=== PATIENT | male | born 1935 | race Caucasian/White ===

== ENCOUNTER 2016-12-02 12:06 | Inpatient (IN) | payer MEDICARE ==
--- NOTE | ~2016-12-02 | HP ---
History And Physical [place] [id number] [facility] [place]. [address] NAME: EDVIN CASTRO : 33 STATUS : ADM IN PAT#: [id number] AGE: 81 ADM/REG DATE : 12/02/16 MR#: [id number] REPORT SERV DATE: 12/02/16 DICTATED BY: JAY ALAN DATE: 12/02/16 REPORT STATUS : Draft TRANSCRIBED BY: MODL DATE: 12/02/16 DATE OF ADMISSION: 12/02/2016 IDENTIFYING DATA: 81-year-old white male whose PCP is Dr. Nora Jeronimo; tack cutter, Dr. Nunez; GI, Dr. Morataya. CHIEF COMPLAINT: Shortness of breath. HISTORY OF PRESENT ILLNESS: This history of present illness is obtained by talking with the patient and his as well as with the ER physician, Dr. Arthur and reviewing [facility] and [facility]. The patient states he was in his usual state of health until he awoke this morning. When he got out of bed, he had a little bit of a cough with a small amount of sputum. He does not recall what color it was. He states he got very short of breath. He had no fever, no throat pain. He had a routine appointment with Dr. Nunez at the office, went there to see them. They noticed his shortness of breath and transported him by ambulance to the ER. In the ER, they did a CT scan of his neck because he had stridor and it revealed nearly total occlusion at the level of the false cords suggesting a mass. The patient was given racemic epinephrine and Decadron and felt significantly better. ER physician, Dr. Arthur told me that she spoke directly with the on-call Ear, Nose, and Throat, Dr. Sulaiman Schwartz and that he suspected it was probably a mucous plug and that he would see the patient in consultation. Because of the Ear, Nose, and Throat was not at the ER directly at that time, I did ask for a repeat CT of the soft tissues of the neck and reviewed it with the same radiologist that had seen the first images, that is Dr. Santiago Mckeon. The review of the second CT according to Dr. Mckeon reveals the same appearance with almost nearly occluded airway at the level of the false cords. The images went far enough in the chest and revealed no lymphadenopathy in the neck or chest, nothing that would be in the way of the recurrent laryngeal. 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 The patient and his state he feels much better at this point in time. He has never had anything like this before. He does not wear home oxygen. He took his flu shot in the fall of last year. REVIEW OF SYSTEMS: He has chronic nocturnal leg cramps. He has 4-5 times per night nocturia. He has occasional ankle edema. He has chronic daily headaches for about 5-6 months and was told he has cervical spine degenerative disk disease and is contemplating potential surgery. He also has some chronic dizziness. He denies fever, abdominal pain, nausea, vomiting, diarrhea, rectal bleeding, or melena. He has a slight dysuria. He has no hesitancy, rash, tick bites, or anorexia. No weight changes or falls. ALLERGIES: HE CLAIMS ALLERGIES TO ERYTHROMYCIN, VIROPTIC, BETADINE, AND LATEX. PAST MEDICAL HISTORY: He denies any history of asthma, COPD, seizures, biliary tract History And Physical [address] [address] NAME: EDVIN CASTRO : 33 STATUS : ADM IN [facility]#: [id number] AGE: 81 ADM/REG DATE : 12/02/16 MR#: [id number] REPORT SERV DATE: 12/02/16 DICTATED BY: JAY ALAN DATE: 12/02/16 REPORT STATUS : Draft TRANSCRIBED BY: MODL DATE: 12/02/16 disease, liver disease, chronic kidney disease, kidney stones, or cancer. He has known coronary artery disease with bypass in 2009. He also has a sick sinus syndrome with a dual lead pacer in place. He has had paroxysmal atrial fibrillation in the past. He has a history of hypertension. He has peripheral arterial disease with history of an abdominal aortic aneurysm. The most recent image of which I saw was on 10/19/2014 and it was 4.4 cm at that time. He has a history of diabetes for about 14 years. He has had previous gastric ulcer and GI bleed, so he is only on aspirin and Plavix instead of other anticoagulants for his history of paroxysmal atrial fibrillation. He has a history of osteoarthritis, hypothyroidism. 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 He has obstructive sleep apnea, but he is not comfortable, so does not wear his CPAP. HOME MEDICATIONS: Amiodarone 200 mg every morning, aspirin 81 mg daily, Lipitor 40 mg at bedtime, baclofen 10 mg at bedtime p.r.n., vitamin C with bioflavonoids 1000 mg twice a day, Caltrate with vitamin D 600 mg twice a day, vitamin D 1000 units twice a day, Plavix 75 mg daily, vitamin B12 1000 mcg daily, Colace 100 mg daily p.r.n., Lasix 80 mg in the morning and 40 mg in the evening, Lopid 600 mg b.i.d., zhsy-pbh-izatsit Move Free joint health tablet, Lantus 30 units twice a day, Prevacid 30 mg twice a day, Synthroid 50 mcg daily, Cozaar 50 mg twice a day, Toprol-XL 12.5 mg daily, fish oil 1200 mg twice a day, Endocet 10/325 q.6 hours p.r.n. pain, MiraLAX powder one packet daily, KCl 20 mEq twice a day, vitamin E 400 units at bedtime. PAST SURGICAL HISTORY: He has had coronary bypass, right total knee. He has had right total hip. He has had bilateral shoulders. He had his right eye enucleated. He has had bilateral carpal tunnel release. SOCIAL HISTORY: He quit smoking in 1988, it was a pack per day. Has no significant alcohol intake history. He is . He used to work in the [employer]. He walks without any assistive device. FAMILY HISTORY: Mother was an alcoholic. Dad with heart disease. Siblings with heart disease. DIAGNOSTIC DATA: EKG done today at 11:25 reveals a lot of baseline motion artifact, but appears like he has underlying first-degree AV block and some nonspecific ST and T-wave abnormalities per my interpretation. Chest x-ray done as a single portable film today reveals bilateral shoulder changes, evidence of previous sternotomy, shallow inspiratory size with grossly clear lung fernandes per my interpretation. CT scan of the chest is described as resulted above. Arterial blood gas done in the emergency room pH 7.53, pCO2 is 27, PO2 is 107, bicarbonate 22.5 and it is not clear how much oxygen he was on. White count is 9.1, hemoglobin 13.8, platelets are 231,000. Pro-time is 13.5, INR 1.0, PTT is 26.0. His sodium is 142, potassium 3.9, chloride 105, CO2 is 28, BUN 23, creatinine 1.92 and by comparison, it was 1.59 on 11/11/2016. Glucose 122, calcium 9.8. The rest of the CMP is normal. Troponin less than 0.02. His B-natriuretic peptide is 70.3. Procalcitonin today History And Physical [address] [address] NAME: EDVIN CASTRO : 33 STATUS : ADM IN [facility]#: [id number] AGE: 81 ADM/REG DATE : 12/02/16 MR#: [id number] REPORT SERV DATE: 12/02/16 DICTATED BY: JAY ALAN DATE: 12/02/16 REPORT STATUS : Draft TRANSCRIBED BY: MODBartolome DATE: 12/02/16 is less than 0.05. PHYSICAL EXAMINATION: VITAL SIGNS: Temp is 98, pulse 70, respirations 22, blood pressure 130/70, O2 saturation is 100%, currently on 4 L. GENERAL: A well-developed, older male, who appears in no acute distress on the ER [facility] with the head of the bed elevated about 45 degrees. HEENT: Head is atraumatic. Pupils: The right eye is gone and his eyelids were sewn shut. Left pupil is reactive. Extraocular motions are intact. No scleral icterus noted. Ear canals and TMs unremarkable. He has moderately diminished hearing. No inflammatory changes noted of the ears externally. Nose, noninflamed externally. Septum midline. Nares patent. Mouth, moist. Good gag. No redness of the throat, gums, or lips. NECK: Supple. No lymph node or thyroid enlargement. The carotids have good pulses. No bruits. He does have a very mild stridor intermittently. LUNGS: Clear. Good air flow. No wheezes nor rhonchi anterior and posterior. Normal respiratory effort at this time. HEART: Regular without gallop, click, murmur, or rub. ABDOMEN: Bowel sounds positive. Obese, soft, nondistended, nontender. No masses. No organomegaly. EXTREMITIES: Warm. Good pulses. No clubbing, no cyanosis, no edema. No actively inflamed skin or joints. ASSESSMENT: 1. Acute stridor with a significantly narrowed airway that did not clear after racemic epinephrine and steroids, though it symptomatically was improved. If this is a mucous plug that would be the best of all scenarios. I am more concerned that it might be a soft tissue mass or recurrent laryngeal nerve palsy bilaterally. 2. Acute kidney injury superimposed on stage 3 chronic kidney disease. 3. Acute respiratory alkalosis. 4. See past medical history. PLAN: Admit to the intensive care and I spoke with Critical Care, Dr. Hossein Portillo about it right now, and I called and left message for the Ear, Nose, and Throat myself. We will give him nebulizer treatments with racemic epinephrine p.r.n. We will go with steroids Decadron. We will humidify oxygen. We will hold his Lasix and losartan for now given his acute kidney injury. We will follow up his renal function. and patient updated at the bedside at this time. NARCISO/MODL Jay Alan M.D. / [id number] History And Physical [address] [address] NAME: EDVIN CASTRO : 33 STATUS : ADM IN [facility]#: [id number] AGE: 81 ADM/REG DATE : 12/02/16 MR#: [id number] REPORT SERV DATE: 12/02/16 DICTATED BY: JAY ALAN DATE: 12/02/16 REPORT STATUS : Draft TRANSCRIBED BY: MODBartolome DATE: 12/02/16 CC: MD Nora Oswald M.D. Alexander Stratienko, M.D. Richard Sadowitz, M.D.
--- NOTE | ~2016-12-02 | CN ---
Consultation Report [facility] [address] [place]. [address] NAME: EDVIN CASTRO : 33 STATUS : ADM IN PAT#: [id number] AGE: 81 ADM/REG DATE : 12/02/16 MR#: [id number] REPORT SERV DATE: 12/04/16 DICTATED BY: LENNIE NUNEZ DATE: 12/04/16 REPORT STATUS : Draft TRANSCRIBED BY: MODBartolome DATE: 12/04/16 CONSULTATION DATE OF CONSULTATION: 12/04/2016 REASON FOR CONSULTATION: Evaluation and treatment of reported Wenckebach. HISTORY OF PRESENT ILLNESS: 81-year-old man, followed by Dr. Jeronimo, known to me from care, has history of coronary artery disease with 2009 three-vessel CABG, and with unexplained decrement in LVEF by surveillance echocardiogram on 11/16 catheterization at [facility] demonstrating normal LV systolic function, and patent vein graft to right posterior artery, and patent SILVA graft to LAD, patent vein graft to first diagonal vessel, PAF status post maze procedure on 04/11 and [id number] score of at least 4, but not anticoagulated due to hemorrhagic risk, type 2 diabetes, treated hypertension, asymptomatic carotid disease, abdominal aortic aneurysm, chronic kidney disease, and history of GI bleeding. The patient was seen in the office on 12/02/2016 for routine blood work and was observed to have respiratory distress. He had stridor and some wheeze, and was breathing over 40 times a minute. He had minimal improvement with aerosolized bronchodilators. He did not complain of chest pain, and there was no evidence of pulmonary congestion. EMS was summoned, and he was brought to the emergency room at [facility]. In the emergency room, he has a CT of the chest which demonstrated near total occlusion of the airway at the level of the false vocal cords. ENT evaluation was requested, but was deferred to outpatient status with suspicion of mucous plug. Repeat CTA demonstrated persistence of near total occlusion of the upper airway. The patient has remained stable from a respiratory perspective while in hospital after treatment with racemic epinephrine. He has been observed to have Wenckebach here, but no atrial fibrillation. He denies chest pain. PAST MEDICAL HISTORY: 1. CAD - remote CABG and cardiac catheterization as above. 2. PAF - [id number] score of at least 4, but high hemorrhagic includes anticoagulation. 3. Hypercholesteremia - treated. 4. Carotid disease - treated. 5. CKD 3. 6. Abdominal aortic aneurysm - 4.6 cm by duplex, 06/17. 7. Remote GI bleed. 8. Hypothyroidism. 9. Dyslipidemia - treated. CURRENT MEDICATIONS: Aspirin 81 mg daily, atorvastatin 40 mg daily, amiodarone 200 mg daily, Plavix 75 mg daily, cyanocobalamin 1 mg daily, dexamethasone 4 mg IV b.i.d., enoxaparin 40 Consultation Report [place] [id number] [place]. [address] NAME: EDVIN CASTRO : 33 STATUS : ADM IN PAT#: [id number] AGE: 81 ADM/REG DATE : 12/02/16 MR#: [id number] REPORT SERV DATE: 12/04/16 DICTATED BY: LENNIE NUNEZ DATE: 12/04/16 REPORT STATUS : Draft TRANSCRIBED BY: MODL DATE: 12/04/16 mg subcu daily, gemfibrozil 600 mg b.i.d., insulin corrected dosing, levothyroxine 50 mcg daily, metoprolol 12.5 mg daily, pantoprazole 40 mg b.i.d., polyethylene glycol packet daily, and potassium 20 mEq b.i.d. ALLERGIES: BETADINE, LATEX, TAPE, AND LYRICA. SOCIAL HISTORY: The patient is and remarried. He has three children from his first marriage. He is retired from [employer]. He smoked a pack of cigarettes for 40 years, quit in 1988. He does not drink alcohol. He does drink caffeinated coffee. He does not do exercise. FAMILY HISTORY: Father had myocardial infarction at age 50. Mother had angina diagnosed at approximately age 50. REVIEW OF SYSTEMS: Stridor as above. PHYSICAL EXAMINATION: GENERAL: In no acute distress. VITAL SIGNS: Blood pressure 134/64, respirations 20, temperature 97.4, pulse 57 and regular. NECK: No JVD. No upper airway noise. No carotid bruit. HEENT: Right eye is enucleated. CARDIAC: I/ systolic murmur, no diastolic murmur. LUNGS: Clear. ABDOMEN: Obese. EXTREMITIES: Warm without edema. LABORATORY DATA: BUN and creatinine 37 and 1.58 respectively. EGFR of 46. Potassium 5.2, magnesium 2.8. White blood cell count of 11,600, hematocrit 36.1%, and platelets 226,000. DIAGNOSTIC DATA: EKG: Sinus rhythm at a rate of 48 with Wenckebach and non-diagnostic Q- waves in lead III. ASSESSMENT AND PLAN: 1. Airway obstruction - this patient had near respiratory arrest in the office. I think he deserves definitive diagnosis and appropriate therapy as inpatient now for fear of recurrent clinical event with discharge pending evaluation. 2. Paroxysmal atrial fibrillation - high bleeding risk, so despite a [id number] score of 3+, dual antiplatelet therapy only is being recommended. 3. Mobitz I - discontinuing amiodarone and beta-lianna at present. 4. Coronary artery disease - stable. Continuing aspirin and Plavix. 5. Elevated cholesterol - treated. 6. Carotid disease - stable. Continue aspirin. 7. Chornic kidney disease - noted. 8. Abdominal aortic aneurysm - 4.6 cm, 06/17. Consultation Report [address] [address] NAME: EDVIN CASTRO : 33 STATUS : ADM IN PAT#: [id number] AGE: 81 ADM/REG DATE : 12/02/16 MR#: [id number] REPORT SERV DATE: 12/04/16 DICTATED BY: LENNIE NUNEZ DATE: 12/04/16 REPORT STATUS : Draft TRANSCRIBED BY: DARRYN DATE: 12/04/16 Thank for this consultation. /DARRYN Lennie Nunez M.D. / [id number] CC: MD Nora Oswald M.D. Richard Scott Gusso, M.D. Hisham F. Qutob, MD
--- NOTE | ~2016-12-02 | CN ---
Consultation Report [facility] [address] [place]. [address] NAME: EDVIN CONNELL : 33 STATUS : ADM IN [facility]#: [id number] AGE: 81 ADM/REG DATE : 12/02/16 MR#: [id number] REPORT SERV DATE: 12/04/16 DICTATED BY: RAMO SIERRA DATE: 12/04/16 REPORT STATUS : Draft TRANSCRIBED BY: MODL DATE: 12/04/16 ELECTROPHYSIOLOGY CONSULTATION DATE OF CONSULTATION: 12/04/2016 REASON FOR CONSULTATION: Paroxysmal atrial fibrillation along with conduction system issues. HISTORY OF PRESENT ILLNESS: Mr. Connell is an 81-year-old gentleman with multiple medical problems. He presented to the hospital with acute onset of respiratory distress and evidence of stridor on his examination in the emergency room. This led to a CT scan of his neck showing evidence for a mass and a probable mucus plug. The patient received epinephrine and Decadron, which improved his symptoms. There was still evaluation going on regarding this neck mass. The patient has a long history of cardiac issues, including coronary artery disease, status post CAB by Dr. Perez, and a history of paroxysmal atrial fibrillation, for which he is currently taking amiodarone and beta-lianna. The patient despite having a CHADS-VASc score of 5 is not a candidate for anticoagulation due to a history of GI bleeding while taking Coumadin due to what sounds to be peptic ulcer disease. Symptoms associated with his atrial fibrillation are somewhat unclear. He denied significant palpitations or chest discomfort, so I am a little uncertain as to what level of symptoms he has had with the atrial fibrillation. The patient's echocardiogram has revealed a normal ejection fraction. There was moderate mitral regurgitation with enlargement of left atrium. Last night, the patient in addition to having a profound first-degree AV block, demonstrated some episodes of type 1 second-degree AV block without clear symptoms. The patient has been taking amiodarone for control of his atrial fibrillation along with beta-lianna and both of these were held due to the conduction system abnormalities. PAST MEDICAL HISTORY: Notable for: 1. History of dyspnea, probable COPD. History of tobacco abuse for a number of years, although quit in 1988. 2. History of coronary artery disease, status post CAB by Dr. Emiliano Perez. 3. History of chronic kidney disease stage 3. GFR of approximately 35. 4. History of type 2 diabetes mellitus, on insulin. 5. History of hypertension. 6. Paroxysmal atrial fibrillation, currently on amiodarone, although this has been held due to profound first-degree AV block as well as type 1 second-degree AV block. 7. History of moderate mitral insufficiency. 8. Newly diagnosed neck mass on this admission and episode of stridor. 9. Complaints of tremors, which began during this admission. HOME MEDICATIONS: Include amiodarone 200 mg daily, currently on hold; aspirin 81 mg; Lipitor 40 mg; baclofen; Plavix 75 mg; Lasix 40 mg q.h.s. and 80 mg q.a.m.; Lopid; insulin; Consultation Report [address] [place]. [address] NAME: EDVIN CONNELL : 33 STATUS : ADM IN [facility]#: [id number] AGE: 81 ADM/REG DATE : 12/02/16 MR#: [id number] REPORT SERV DATE: 12/04/16 DICTATED BY: RAMO SIERRA DATE: 12/04/16 REPORT STATUS : Draft TRANSCRIBED BY: DARRYN DATE: 12/04/16 Prevacid; levothyroxine; Cozaar; metoprolol, currently on hold; omega-3 fatty acid; potassium; vitamin E. FAMILY HISTORY: Negative for premature coronary disease or sudden cardiac . SOCIAL HISTORY: History of tobacco abuse, quit in 1988. Negative for alcohol. . REVIEW OF SYSTEMS: As noted above. All other systems reviewed and negative. PHYSICAL EXAMINATION: VITAL SIGNS: His blood pressure is 128/58, pulse is 60 with first-degree AV block, respirations 18, O2 sat on 2 L of 96%. GENERAL: The patient is experiencing tremors bilaterally. He is distracted. HEENT: No icterus. Good dentition. NECK: Supple. No masses or thyromegaly. LUNGS: Breathing comfortably. No rales or wheezes. COR: Normal S1, S2. No S3 or S4. No murmurs, clicks, rubs. No JVD. ABD: Soft, nondistended, nontender. No hepatosplenomegaly. EXT: No clubbing, cyanosis, or edema. Peripheral pulses 2+/= bilaterally. SKIN: Warm and dry. No visible lesions. MS: Chest wall without deformity. No obvious clavicular fractures. NEURO/PSYCH: Oriented x3. No anxiety or depression. IMAGING: EKG from 12/04 shows sinus rhythm, first-degree AV block with a AK interval of 380 milliseconds. The QRS and QT intervals are both within normal limits. No evidence for ischemia, infarction, or chamber hypertrophy. LABORATORY VALUES: Show a sodium of 139; his potassium this morning is 5.2; his creatinine on admission was 1.92, it is now 1.58; GFR is between 35 and 45. White count is 11.6, hematocrit of 36, platelet count of 226. TSH is 5.2. BNP is 70. IMPRESSION: We have been asked to see the patient to discuss consideration of radiofrequency ablation for paroxysmal atrial fibrillation. It is somewhat unclear as to the level of symptoms the patient has with the atrial fibrillation. Some notable issues are that the patient cannot take anticoagulation due to a history of GI bleeding. At a minimum, he would need to have three months of anticoagulation after the ablation procedure due to the high risk of stroke postoperatively in these patients. There are also other issues including his advanced age and many comorbidities. Although this does not preclude him from undergoing the ablation, it definitely puts him at higher risk for the procedure. These would include the need for intubation in a patient who has recently experienced stridor and has evidence of a neck mass. At this point, I would not recommend proceeding with radiofrequency ablation. In terms of his conduction system issues, he has a profound first-degree AV block and an Consultation Report [address] [place]. [address] NAME: EDVIN CONNELL : 33 STATUS : ADM IN [facility]#: [id number] AGE: 81 ADM/REG DATE : 12/02/16 MR#: [id number] REPORT SERV DATE: 12/04/16 DICTATED BY: RAMO SIERRA DATE: 12/04/16 REPORT STATUS : Draft TRANSCRIBED BY: DARRYN DATE: 12/04/16 intermittent type 1 second-degree AV block. He is taking metoprolol and amiodarone, both of which could contribute to this. These are both on hold, although the effects of the amiodarone may take some time to wear off. We may be able to reduce the amiodarone dose to 100 mg daily and either discontinue the beta-lianna or reduce its dose further. If it is clear that he is getting beneficial effects from these medications, we could consider a permanent pacemaker if the conduction system issues are significantly symptomatic. Again at this point, I would hold his beta-lianna and amiodarone, but I would not recommend radiofrequency ablation due to the issues listed above. Thank you for this consultation. We are available if needed. IRAM/DARRYN Ramo Sierra M.D. / [id number] CC: MD Nora Oswald M.D.
--- NOTE | ~2016-12-02 | CN ---
Consultation Report [facility] [address] [place]. [address] NAME: EDVIN CASTRO : 33 STATUS : ADM IN PAT#: [id number] AGE: 81 ADM/REG DATE : 12/02/16 MR#: [id number] REPORT SERV DATE: 12/05/16 DICTATED BY: DATE: REPORT STATUS : Draft TRANSCRIBED BY: MODL DATE: 12/04/16 NEUROLOGY CONSULTATION. DATE OF CONSULTATION: 12/04/2016 REASON FOR CONSULT: Tremor, concern for possible seizure. HISTORY OF PRESENT ILLNESS: This is an 81-year-old male, presented to [facility] on 12/02/2016 secondary to shortness of breath as well as concern for a possible mass in the laryngeal area. Patient was noted to have shortness of breath, was given racemic mixture of epinephrine, and was subsequently improved. The patient does have a CT scan of the cervical neck soft tissue and was noted to have CT scan finding concerning for a mass. ENT performed laryngoscopy during the hospitalization, and the patient was noted to have a small mass in the laryngeal area that does not appear to be compressing on patient's airway and was noted to be very small. No large compressive mass was otherwise noted concerning for possible mucous polyp that has subsequently resolved. The patient reports that since the hospitalization patient has had significant tremors occur multiple times a day that appeared to be somewhat of a short duration but at times associated with painful spasms in the lower extremity as well as loss of consciousness episodes with the patient reports multiple loss of consciousness episodes during the emergency evaluation as well as overnight on 12/03/2016. Patient denies previous history of shaking except for mild tremors in the bilateral lower extremity which the patient attributed to chronic diabetes as well as some tremor at nights in the past that appeared to be resolved with ambulation. The patient otherwise denies any association of tremors with actions but does notice they tend to happen with resting. The patient reports the tremor appeared to be resolved with Ativan for roughly 2 to 3 hours and then recurs. The patient denies any other recent stress and denies any other anxiety issues. No significant family history of tremor was otherwise noted. The patient does have a history of ambulation difficulties. We will have to walk with a back brace which was a chronic issue. No recent change in gait was otherwise noted, and no recent dysarthria was noted at the time of evaluation. No other focal weakness or numbness was otherwise reported by the patient. The patient during the hospitalization was given steroids for concern of laryngeal mass that was subsequently discontinued today. Prior to the hospitalization, no other recent changes in medication were otherwise noted. The patient denies any recent illness. REVIEW OF SYSTEMS: Patient does have a history of nocturnal leg cramps and apparent mild tremor that appeared to be improved with ambulation. Patient does have apparent chronic daily headache with the headache apparently worse during the hospitalization. Cervical spine degeneration. Also patient noted to have a history of diabetes. The patient, in addition, was also noted to have sick sinus syndrome. Also the patient denies any pacemaker placement. The patient does have coronary artery disease with bypass, paroxysmal atrial fibrillation, history of hypertension, peripheral artery disease as well as lumbar spine issues with what sounded like claudications. The patient also was noted to have a history of abdominal aortic Consultation Report [address] [place]. [address] NAME: EDVIN CASTRO : 33 STATUS : ADM IN PAT#: [id number] AGE: 81 ADM/REG DATE : 12/02/16 MR#: [id number] REPORT SERV DATE: 12/05/16 DICTATED BY: DATE: REPORT STATUS : Draft TRANSCRIBED BY: MODL DATE: 12/04/16 aneurysm, recently diagnosed laryngeal mass that does not appear to be compressing on patient's airway, history of hypothyroidism in the past. 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 Review of systems negative except for those mentioned in the HPI. SOCIAL HISTORY: The patient quit smoking in 1988. Denies alcohol and denies recreational drug usage. FAMILY HISTORY: Significant for alcohol abuse as well as heart disease. No family history of tremor was otherwise reported. MEDICATIONS: The patient's current medications consist of aspirin, Lasix, Levemir, Lipitor, Lopid, Lovenox, MiraLAX, NovoLog, Plavix, Protonix, Synthroid, and vitamin B12. The patient does have p.r.n. Ativan as well as Valium which appeared to have helped patient's tremor. The patient was also noted to have p.r.n. baclofen prior to the hospitalization that was discontinued and recent Decadron that was also discontinued. The patient at home was also taking metoprolol which recently was also discontinued, likely secondary to bradycardia during the hospitalization. PHYSICAL EXAMINATION: VITAL SIGNS: At the time of evaluation, patient was noted to have vital signs with T-max of 97.9, heart rate of 42 to 68, respirations of 15 to 29, and blood pressure of 108 to 166 over 58 to 84. GENERAL: Patient is well developed, well nourished, in no acute distress. CARDIOVASCULAR: Examination is regular rate and rhythm. No carotid bruits were otherwise auscultated. PULMONARY: Examination was clear to auscultation bilaterally. NEUROLOGICAL: Generally, patient is alert and oriented to person, place, year, and month. Follows simple and 2-step commands. Intact registration. Mild difficulties with recall. No dysarthria or aphasia was noted. The patient was noted to have some mild difficulty following complex commands. Cranial nerves II through XII: Right eye was taken out with the patient noted to have pupil reactive in the left eye. Extraocular eye movement in the left eye was otherwise intact with apparent intact peripheral vision. The patient was noted to have otherwise symmetrical facial expression. Midline tongue. Normal palatal movement. Reports symmetrical facial sensation. Decreased hearing in bilateral ears which according to the patient has been chronic. The patient does demonstrate occasional tremor in bilateral upper extremity and sometimes in bilateral lower extremity that was briefly short lasting, lasting about 2 to 3 minutes, occurs sporadically without any associated loss of consciousness with the tremor. The patient otherwise demonstrated no cogwheel rigidity with bradykinesia at the time of evaluation. Was noted to have 5/5 bilateral upper and lower extremity at the time of evaluation. Reports symmetrical sensation in bilateral upper extremity and decreased sensation in bilateral lower extremities. Deep tendon reflex was trace throughout. Downgoing toe and bilateral plantar reflexes. The patient was noted to have difficulties pointing to target with finger to chin evaluation, worse in the right upper extremity compared to the left upper extremity. Gait was not evaluated as the patient Consultation Report [address] [place]. [address] NAME: EDVIN CASTRO : 33 STATUS : ADM IN PAT#: [id number] AGE: 81 ADM/REG DATE : 12/02/16 MR#: [id number] REPORT SERV DATE: 12/05/16 DICTATED BY: DATE: REPORT STATUS : Draft TRANSCRIBED BY: MODL DATE: 12/04/16 reports difficulty ambulating without back brace. LABORATORY STUDIES: Demonstrated white blood cell count of 11.6, hemoglobin of 12.3, hematocrit of 36.1, and platelet count of 226. Chemistry panel: Sodium 139, potassium 5.2, chloride 105, bicarb 27, BUN of 37, creatinine of 1.58, glucose of 193, calcium of 8.9 with serum TSH of 2.06, free T4 of 2.99, free T3 of 1.48. Hemoglobin A1c of 6.7. The patient does have a soft tissue of the neck CT scan, but no neuro imaging was otherwise obtained. IMPRESSION: Involuntary movement/tremors. Symptom appears to be paroxysmal with mild tremor noted on examination that appeared to be brief, roughly 2 to 3 seconds, bilateral upper extremity, mostly in the distal bilateral upper extremity without any associated loss of consciousness episodes. On examination, no cogwheel rigidity or posture tremor or intention tremor was otherwise noted. No consistent resting tremor was seen. Etiology of tremor is otherwise unclear. The patient does have several medications discontinued including baclofen as well as metoprolol, as well as steroid discontinued, concern for possible withdrawal versus atypical resting tremor that was previously controlled on metoprolol. The patient, however, denies any family history of tremor. We will check MRI of the brain without contrast. We will obtain laboratory study. We will start the patient on trial of primidone 50 mg p.o. at bedtime. We will hold primidone for sedation and will consider possible EEG on 12/07/2016. RECOMMENDATION: 1. Primidone 50 mg p.o. at bedtime. 2. MRI of the brain without contrast. 3. Ammonia, vitamin B12, folate, thiamine, iron studies with morning labs. 4. May consider EEG on 12/07/2016. [facility]/DARRYN Wallace Novoa MD / [id number]
--- NOTE | ~2016-12-02 | DS ---
Discharge Summary [facility] [address] [place]. [address] NAME: EDVIN CASTRO : 33 STATUS : DIS IN PAT#: [id number] AGE: 81 ADM/REG DATE : 12/02/16 MR#: [id number] REPORT SERV DATE: 12/06/16 DICTATED BY: HUSSAIN HERRERA II DATE: 12/05/16 REPORT STATUS : Draft TRANSCRIBED BY: MODL DATE: 12/05/16 ADMISSION DATE: 12/02/2016 DISCHARGE DATE: 12/05/2016 DISCHARGE DIAGNOSES: 1. Acute respiratory distress secondary to likely mucus plug. 2. Posterior pharyngeal mass. 3. Mobitz type 1 second-degree heart block. 4. Acute kidney injury on chronic kidney disease stage III. 5. Severe tremors of uncertain etiology, now improved. 6. Paroxysmal atrial fibrillation. 7. History of coronary artery disease, status post bypass. 8. History of sick sinus syndrome with dual lead pacemaker. 9. History of hypertension. 10.History of peripheral artery disease. 11.History of abdominal aortic aneurysm. 12.History of diabetes mellitus type 2. 13.History of gastrointestinal bleed. CONSULTS: Dr. Nunez with Cardiology, Dr. Schwartz with ENT, Dr. Wallace Novoa with Neuro, Dr. Emmett Sierra with Cardiology as well for EP evraquel. BRIEF HISTORY OF PRESENT ILLNESS: The patient is an 81-year-old male with the above history presented to [facility] due to shortness of breath and stridor. For detailed history and physical examination, please see Dr. Alan's note from 12/02/2016. HOSPITAL COURSE: On admission, the patient was treated aggressively for stridor. CT of the neck showed a supraglottic soft tissue mass at the level of the false cords with minimal aperture for the patient's airway. ENT was consulted and the patient was watched in the CCU. Laryngoscopy showed normal larynx, normal cords, trachea patent with no ulcers or mass. There was a posterior pharyngeal wall smooth soft-tissue covered mass at the level of the epiglottis that does not obstruct the larynx. Dr. Schwartz thought the patient likely had a mucous plug, which cleared in the ER and had no stridor at the time of his evaluation and the posterior pharyngeal wall mass can be evaluated with biopsy as an outpatient. Otherwise, the patient has also noted to have a Mobitz type 1 second-degree heart block and Dr. Nunez was consulted. He held his amiodarone and metoprolol and also ask Dr. Sierra to comment from an electrophysiologic standpoint. He did not think the patient's symptoms necessitated consideration of radiofrequency ablation given he is need to be anticoagulated afterward and risk of GI bleed. He has a profound first-degree AV block and intermittent type 1 second-degree AV block and agreed with holding amiodarone and metoprolol. At this point, we will treat medically and follow up with Dr. Nunez. Otherwise, he was held longer in the hospital due to episodes of severe upper and lower extremity tremors that were uncontrollable and associated with brief spells of loss of consciousness. Dr. Novoa with Neurology was consulted and thought he might be having possible stressed physiologic tremor as the patient has had similar tremors over the last three months, though much worse. After holding his steroids, which he was getting Decadron Discharge Summary [address] [address] NAME: EDVIN CASTRO : 33 STATUS : DIS IN PAT#: [id number] AGE: 81 ADM/REG DATE : 12/02/16 MR#: [id number] REPORT SERV DATE: 12/06/16 DICTATED BY: HUSSAIN HERRERA II DATE: 12/05/16 REPORT STATUS : Draft TRANSCRIBED BY: MODL DATE: 12/05/16 for his airway and starting primidone his tremors essentially resolved. There was no convincing seizure-like activity. At this point, the patient is stable and Dr. Novoa has advised followup in the clinic for possible outpatient EEG and we will continue primidone. Otherwise, the patient is stable for discharge. He did have a mild CLARISA from baseline at 1.92 on admission, this has trended down to 1.58. Otherwise, we will continue his home medications. DISCHARGE MEDICATIONS: 1. Aspirin 81 mg p.o. daily. 2. Lipitor 40 mg p.o. at bedtime. 3. Plavix 75 mg p.o. daily. 4. Vitamin B12 of 1000 mcg p.o. daily. 5. Lopid 600 mg p.o. b.i.d. 6. Lantus 30 units subcu b.i.d. 7. Synthroid 50 mcg p.o. daily. 8. MiraLAX daily. 9. Primidone 50 mg p.o. at bedtime. 10.Caltrate 600 mg p.o. b.i.d. 11.Colace p.r.n. 12.Potassium chloride 20 mEq p.o. b.i.d. 13.Prevacid 30 mg p.o. b.i.d. 14.Lasix 80 mg p.o. daily. 15.Lasix 40 mg p.o. at bedtime. 16.Cozaar 50 mg p.o. b.i.d. 17.Fish oil 1200 mg p.o. b.i.d. 18.Endocet one tab p.o. q.6 hours p.r.n. pain. 19.Bioflavonoid products 1000 mg p.o. b.i.d. 20.Vitamin D3 of 1000 units p.o. b.i.d. 21.Vitamin E 400 units p.o. at bedtime. 22.Baclofen 10 mg p.o. at bedtime p.r.n. DISCHARGE INSTRUCTIONS: 1. The patient will follow up with Neuro in two to three weeks. 2. The patient will follow with Dr. Nunez in two to three weeks. 3. The patient will follow with Dr. Schwartz in one to two weeks. VISHNU/DARRYN Hussain Herrera II, MD / [id number] CC: Hussain Herrera II, MD Discharge Summary [address] [address] NAME: EDVIN CASTRO : 33 STATUS : DIS IN PAT#: [id number] AGE: 81 ADM/REG DATE : 12/02/16 MR#: [id number] REPORT SERV DATE: 12/06/16 DICTATED BY: HUSSAIN HERRERA II DATE: 12/05/16 REPORT STATUS : Draft TRANSCRIBED BY: MODL DATE: 12/05/16 Nora Jeronimo M.D. Benji Nunez M.D. MD Ubaldo Powell M.D. Emmett Sierra M.D. Sulaiman Schwartz M.D.
[2016-12-02 11:44] LABS: BASOPHILS 0.6 %; BASOPHILS ABSOLUTE 0.05 10/3/uL (0.0-0.16); EOSINOPHILS ABSOLUTE 0.36 10/3/uL (0.0-0.53); HEMOGLOBIN 13.8 g/dL (13.6-17.8); IMMATURE GRANULOCYTES 0.2 %; IMMATURE GRANULOCYTES ABSOLUTE 0.02 10/3/uL (0.0-0.11); LYMPHOCYTES 27.7 %; LYMPHOCYTES ABSOLUTE 2.52 10/3/uL (0.67-4.30); MEAN CORPUS HGB CONC 33.4 g/dL (32.0-36.0); MEAN CORPUSCULAR HEMOGLOB 29.1 pg (26.0-34.0); MEAN CORPUSCULAR VOLUME 87.1 fL (80-100); MEAN PLATELET VOLUME 10.2 fL (9.2-13.0); MONOCYTES 10.6 %; MONOCYTES ABSOLUTE 0.96 10/3/uL (0.21-1.20); NEUTROPHILS 56.9 %; NEUTROPHILS ABSOLUTE 5.18 10/3/uL (2.02-8.40); PLATELET COUNT 231 10/3/uL (150-400); RBC DISTRIBUTION WIDTH 14.9 % (12.0-16.0); RED CELL COUNT 4.74 10/6/uL (4.7-6.1)
[2016-12-02 11:45] LABS: WHITE BLOOD CELLS 9.1 10/3/uL (4.5-10.5)
[2016-12-02 11:46] LABS: HEMATOCRIT 41.3 % (40.0-51.0); MANUAL DIFF NO %
[2016-12-02 11:54] LABS: PROTIME (NOT ORD) 13.5 SEC (12.0-14.5)
[2016-12-02 12:00] LABS: A/G RATIO 1.1 (0.7-1.9); ALBUMIN 3.7 G/DL (3.5-5.0); ALKALINE PHOSPHATASE 88 U/L (45-117); BUN (BLOOD UREA NITROGEN) 23 MG/DL (6-23); CALCIUM, SERUM 9.8 MG/DL (8.5-10.4); CHLORIDE, SERUM 105 MMOL/L (96-112); CO2 (CARBON DIOXIDE) 28 MMOL/L (24-34); CREATININE 1.92 MG/DL (0.70-1.30); GFR AFRICAN AMERICAN 36 ML/MIN (>=60); GFR NON AFRICAN AMERICAN 31 ML/MIN (>=60); GLOBULIN 3.3 G/DL (2.5-4.1); GLUCOSE, SERUM 122 MG/DL (60-99); POTASSIUM, SERUM 3.9 MMOL/L (3.5-5.3); SGOT(AST) 9 U/L (5-40); SGPT(ALT) 17 U/L (5-65); SODIUM, SERUM 142 MMOL/L (135-148); TOTAL BILIRUBIN 0.4 MG/DL (0-1.2); TROPONIN I <0.02 NG/ML (<0.05)
[~2016-12-02 12:06] MED LIST: ASA5GR PO; ASAB PO; CALTRAT600 PO; CIALIS10 MG PO; CIALIS20 MG PO; CORDARONE PO; COUMADIN3 MG PO; COZ50 PO; DSS PO; FISH OIL1200 MG PO; GLUCOPHAGE1000 MG PO; GLYNASE6 MG PO; JANUMET1 TA1 PO; JANUVIA50 PO; K-99 PO; KLOR-CON M2020 MEQ PO; L20 PO; L40 PO; LANTUSCART SC; LIPITOR40 PO; LOPID6 PO; NEXIUM40 PO; NORV5 PO; PERCOCET 10/3251 TAB PO; PLAVIX PO; PREV30 PO; SYN.05 PO; TOPXL25 PO; TOPXL50 PO; TRAZ50 PO; VITAMIN B-121000 MC1 SL; VITAMIN C100 MG PO; VITAMIN D31000 UNIT PO; VITE PO; [UNRECOGNIZED DRUG - OTHER]; [UNRECOGNIZED DRUG - OTHER]
[2016-12-02 12:21] LABS: B NATRIURETIC PEPTIDE (BNP) 70.3 PG/ML (< 100.0)
[2016-12-02 13:17] LABS: PROCALCITONIN <0.05 ng/mL (<0.5)
[2016-12-02] MEDS ORDERED: CORDARONE PO (13:32)
[2016-12-02] MEDS ORDERED: PLAVIX PO (13:33)
[2016-12-02] MEDS ORDERED: LIPITOR40 PO (13:33)
[2016-12-02] MEDS ORDERED: CALTRA600D PO (13:33)
[2016-12-02] MEDS ORDERED: LOPID6 PO (13:34)
[2016-12-02] MEDS ORDERED: DSS PO (13:34)
[2016-12-02] MEDS ORDERED: PREV30 PO (13:35)
[2016-12-02] MEDS ORDERED: LANTUSCART SC (13:35)
[2016-12-02] MEDS ORDERED: KLOR-CON M2020 MEQ PO (13:35)
[2016-12-02] MEDS ORDERED: L80 PO (13:36)
[2016-12-02] MEDS ORDERED: FISH OIL1200 MG PO (13:36)
[2016-12-02] MEDS ORDERED: ENDOCET1 TA3 PO (13:36)
[2016-12-02] MEDS ORDERED: L40 PO (13:36)
[2016-12-02] MEDS ORDERED: COZ50 PO (13:36)
[2016-12-02] MEDS ORDERED: VIT C/RHIPS/ PO (13:37)
[2016-12-02] MEDS ORDERED: SYN.05 PO (13:37)
[2016-12-02] MEDS ORDERED: VITAMIN B-121000 MC1 PO (13:37)
[2016-12-02] MEDS ORDERED: VITAMIN D31000 UNIT PO (13:38)
[2016-12-02] MEDS ORDERED: TOPXL25 PO (13:38)
[2016-12-02] MEDS ORDERED: VITE PO (13:38)
[2016-12-02] MEDS ORDERED: LIOR10 PO (13:39)
[2016-12-02] MEDS ORDERED: MOVE FREE JOIN1 EACH PO (13:39)
[2016-12-02] MEDS ORDERED: MIRALAX POWDER1 PKT PO (13:40)
[2016-12-02] MEDS ORDERED: ASAB PO (13:40)
[2016-12-02 22:14] LABS: GLYCOHEMOGLOBIN (HbA1c) 6.7 % (4.7-6.1)
[2016-12-03 02:51] LABS: ASCORBIC ACID (UR NOT ORDER) 40 (NEG); BILIRUBIN, URINE NEGATIVE (NEG); KETONE, URINE NEGATIVE (NEG); LEUKOCYTE ESTERASE(NOT OR NEG (NEG); WBC (NOT ORDERED) (RFLEX) 1 (0-5)
[2016-12-03 05:42] LABS: BASOPHILS 0 %; EOSINOPHILS 0 %; HEMOGLOBIN 12.3 g/dL (13.6-17.8); IMMATURE GRANULOCYTES 0.3 %; IMMATURE GRANULOCYTES ABSOLUTE 0.03 10/3/uL (0.0-0.11); LYMPHOCYTES 9.2 %; LYMPHOCYTES ABSOLUTE 1.07 10/3/uL (0.67-4.30); MEAN CORPUS HGB CONC 34.1 g/dL (32.0-36.0); MEAN CORPUSCULAR HEMOGLOB 29.3 pg (26.0-34.0); MEAN PLATELET VOLUME 10.5 fL (9.2-13.0); MONOCYTES 3.1 %; MONOCYTES ABSOLUTE 0.36 10/3/uL (0.21-1.20); NEUTROPHILS 87.4 %; NEUTROPHILS ABSOLUTE 10.12 10/3/uL (2.02-8.40); PLATELET COUNT 226 10/3/uL (150-400); RBC DISTRIBUTION WIDTH 15.1 % (12.0-16.0); WHITE BLOOD CELLS 11.6 10/3/uL (4.5-10.5)
[2016-12-03 05:43] LABS: HEMATOCRIT 36.1 % (40.0-51.0); MANUAL DIFF NO %
[2016-12-03 05:49] LABS: CALCIUM, SERUM 9.3 MG/DL (8.5-10.4); CHLORIDE, SERUM 102 MMOL/L (96-112); CO2 (CARBON DIOXIDE) 29 MMOL/L (24-34); CREATININE 1.65 MG/DL (0.70-1.30); GFR AFRICAN AMERICAN 44 ML/MIN (>=60); GFR NON AFRICAN AMERICAN 38 ML/MIN (>=60); PHOSPHORUS, SERUM 2.6 MG/DL (2.5-4.5); SODIUM, SERUM 137 MMOL/L (135-148)
[2016-12-03 05:50] LABS: BUN (BLOOD UREA NITROGEN) 28 MG/DL (6-23); GLUCOSE, SERUM 208 MG/DL (60-99); POTASSIUM, SERUM 4.8 MMOL/L (3.5-5.3)
[2016-12-04 06:29] LABS: CALCIUM, SERUM 8.9 MG/DL (8.5-10.4); CHLORIDE, SERUM 105 MMOL/L (96-112); CO2 (CARBON DIOXIDE) 27 MMOL/L (24-34); CREATININE 1.58 MG/DL (0.70-1.30); GFR AFRICAN AMERICAN 46 ML/MIN (>=60); GFR NON AFRICAN AMERICAN 40 ML/MIN (>=60); GLUCOSE, SERUM 193 MG/DL (60-99); POTASSIUM, SERUM 5.2 MMOL/L (3.5-5.3); SODIUM, SERUM 139 MMOL/L (135-148)
[2016-12-04 06:32] LABS: BUN (BLOOD UREA NITROGEN) 37 MG/DL (6-23)
[2016-12-04 08:36] LABS: FREE T4 0.99 NG/DL (0.76-1.46)
[2016-12-05 07:03] LABS: BUN (BLOOD UREA NITROGEN) 38 MG/DL (6-23); CALCIUM, SERUM 8.5 MG/DL (8.5-10.4); CHLORIDE, SERUM 105 MMOL/L (96-112); CO2 (CARBON DIOXIDE) 27 MMOL/L (24-34); CREATININE 1.64 MG/DL (0.70-1.30); GFR AFRICAN AMERICAN 44 ML/MIN (>=60); GFR NON AFRICAN AMERICAN 38 ML/MIN (>=60); GLUCOSE, SERUM 191 MG/DL (60-99); IRON, SERUM 47 MCG/DL (35-150); POTASSIUM, SERUM 4.5 MMOL/L (3.5-5.3); SODIUM, SERUM 139 MMOL/L (135-148)
[2016-12-05] MEDS ORDERED: PRIM50B PO (17:29)
[2016-12-07 19:05] LABS: THIAMINE 7.4 nmol/L (()); THIAMINE MONOPHOSPHATE 4.1 nmol/L (())
[2017-01-04] MEDS ORDERED: VITC500 PO (12:26)
[2017-04-21] MEDS ORDERED: LANTUSCART SC (10:44)
[2017-04-22] MEDS ORDERED: TRAZ50 PO (05:59)
== END 2016-12-05 18:48 | disposition home or self-care (01) | DRG 155 ==
LOC: ER 12:06 → CCU 16:24 → 6NO 12-03 13:49
PROVIDERS: Emergency Medicine; Internal Medicine; Psychiatry & Neurology Neurology
DX: T17.290A Other foreign object in pharynx causing asphyxiation, initial encounter (principal); N17.9 Acute kidney failure, unspecified; E87.3 Alkalosis; I48.0 Paroxysmal atrial fibrillation; I25.110 Atherosclerotic heart disease of native coronary artery with unstable angina pectoris; E11.9 Type 2 diabetes mellitus without complications; R06.1 Stridor; I10 Essential (primary) hypertension; E03.9 Hypothyroidism, unspecified; J39.2 Other diseases of pharynx; I44.1 Atrioventricular block, second degree; I44.0 Atrioventricular block, first degree; R25.1 Tremor, unspecified; R51 Headache; M50.30 Other cervical disc degeneration, unspecified cervical region; N18.3 Chronic kidney disease, stage 3 (moderate); I12.9 Hypertensive chronic kidney disease with stage 1 through stage 4 chronic kidney disease, or unspecified chronic kidney disease; K27.9 Peptic ulcer, site unspecified, unspecified as acute or chronic, without hemorrhage or perforation; I34.0 Nonrheumatic mitral (valve) insufficiency; I71.4 Abdominal aortic aneurysm, without rupture; M19.90 Unspecified osteoarthritis, unspecified site; Z95.1 Presence of aortocoronary bypass graft; Z95.0 Presence of cardiac pacemaker; Z79.82 Long term (current) use of aspirin; Z79.02 Long term (current) use of antithrombotics/antiplatelets; Z87.891 Personal history of nicotine dependence; Z88.1 Allergy status to other antibiotic agents; Z91.040 Latex allergy status
CPT/HCPCS: 36600; 70490; 70551; 71010; 80048; 80053; 81001; 82140; 82330; 82607; 82746; 82803; 82947; 82962; 83036; 83540; 83735; 83880; 84100; 84132; 84145; 84295; 84425; 84439; 84443; 84481; 84484; 85014; 85025; 85610; 85730; 87040; 87641; 93005; 94640; 96374; 99291; A9270-GY; J1940; J2405; J3475

== ENCOUNTER 2017-01-07 06:18 | Day surgery (SDC) | payer MEDICARE ==
[2017-01-05 14:57] LABS: HEMATOCRIT 39.1 % (40.0-51.0); HEMOGLOBIN 12.9 g/dL (13.6-17.8)
[2017-01-05 15:11] LABS: CHLORIDE, SERUM 99 MMOL/L (96-112); CO2 (CARBON DIOXIDE) 28 MMOL/L (24-34); CREATININE 1.94 MG/DL (0.70-1.30); GFR AFRICAN AMERICAN 36 ML/MIN (>=60); GFR NON AFRICAN AMERICAN 31 ML/MIN (>=60); POTASSIUM, SERUM 4.2 MMOL/L (3.5-5.3)
[2017-01-05 15:12] LABS: BUN (BLOOD UREA NITROGEN) 31 MG/DL (6-23); CALCIUM, SERUM 9.5 MG/DL (8.5-10.4); GLUCOSE, SERUM 148 MG/DL (60-99); SODIUM, SERUM 132 MMOL/L (135-148)
--- NOTE | ~2017-01-07 | OP ---
Record Of Operation [facility] [address] [place]. [address] NAME: EDVIN CASTRO : 33 STATUS : [facility]#: [id number] AGE: 81 ADM/REG DATE : 01/07/17 MR#: [id number] REPORT SERV DATE: 01/11/17 DICTATED BY: SHERITA SCHWARTZ DATE: 01/10/17 REPORT STATUS : Draft TRANSCRIBED BY: MODBartolome DATE: 01/10/17 DATE OF PROCEDURE: 01/07/2017 SURGEON: Sherita Schwartz M.D. PREOPERATIVE DIAGNOSIS: Posterior pharyngeal wall lesion, really at the level of the nasopharynx. POSTOPERATIVE DIAGNOSIS: Posterior pharyngeal wall lesion, really at the level of the nasopharynx. PROCEDURE: Microdirect laryngoscopy. No biopsy was performed. FINDINGS: There was a left posterior pharyngeal wall mass, which was pulsatile, suspicious for either aberrant running carotid artery or perhaps aneurysm of such or vascular malformation, however, due to the pulsatile nature, no biopsy was performed. INDICATION FOR PROCEDURE: This is an 81-year-old gentleman, seen in the hospital on consultation, consulted for an obstructive mass, which was not really obstructive in the area of the supraglottis. He had normal-appearing larynx in the hospital and I would visualize this today as well, but he did have a posterior pharyngeal wall mass, which I saw in the clinic as well, so we decided to take him to the OR to evaluate this further and make sure there was no further obstruction in the larynx. He described the risks and benefits of the procedure including blood loss, infection, risk of anesthesia, and lack of diagnosis and the possibility that this is a normal structure. He voiced understanding of things and signed the consent. The consent was placed in chart at the time of operation. DESCRIPTION OF PROCEDURE: The patient was brought to the OR suite and placed on the table in the supine position. He was intubated using a 6.5 regular endotracheal tube and the table was turned 90 degrees. He was prepped and draped in standard fashion for a microdirect laryngoscopy and maxillary tooth guard was placed. Head drape was placed and we visualized his pharynx. Using a Dedo-Ossoff laryngoscope, I visualized his larynx. He had a normal- appearing larynx, normal vocal cords. There was no lesion within the piriforms or tongue base. The tongue base was palpably normal. Tonsil fossa were normal. I did place a tonsil clamp to visualize his posterior pharyngeal wall. I elevated the palate and saw a pulsatile lesion in this area, it was approximately 1.5 to 2 cm in diameter and I did take video images of this using 0-degree telescope. A decision was made not to biopsy this and I would refer back to the previously performed CT scan, although I did go over this with the radiologist preoperatively. We did not feel that his carotid artery moved into this area; however, there were noncontrast scans that were performed, so at this point after the photos were taken, I would decide that at the end of the procedure, there was no obstructive lesion. I removed the tooth guard, removed the Dedo-Ossoff scope, turned him 90 degrees, returned to the care of the anesthesiologist. He was subsequently awoken, extubated, and stably transferred to the recovery area. Record Of Operation [address] [place]. [address] NAME: EDVIN CASTRO : 33 STATUS : [facility] PAT#: [id number] AGE: 81 ADM/REG DATE : 01/07/17 MR#: [id number] REPORT SERV DATE: 01/11/17 DICTATED BY: SHERITA SCHWARTZ DATE: 01/10/17 REPORT STATUS : Draft TRANSCRIBED BY: DARRYN DATE: 01/10/17 ESTEBAN/DARRYN Sherita Schwartz M.D. / [id number] CC: Amy Chavez M.D.
[~2017-01-07 06:18] MED LIST changes: +CALTRA600D PO; +ENDOCET1 TA3 PO; +L80 PO; +LIOR10 PO; +MIRALAX POWDER1 PKT PO; +MOVE FREE JOIN1 EACH PO; +PRIM50B PO; +VIT C/RHIPS/ PO; +VITAMIN B-121000 MC1 PO; +VITC500 PO
[2017-04-21] MEDS ORDERED: LANTUSCART SC (10:44)
[2017-04-22] MEDS ORDERED: TRAZ50 PO (05:59)
== END 2017-01-07 12:19 | disposition home or self-care (01) ==
LOC: SDC 06:18
PROVIDERS: Otolaryngology
PROC: 0CJS8ZZ Inspection of Larynx, Via Natural or Artificial Opening Endoscopic (ICD-10-PCS; principal; 2017-01-07 07:45)
DX: J39.2 Other diseases of pharynx (principal); E11.9 Type 2 diabetes mellitus without complications; I10 Essential (primary) hypertension; Z86.73 Personal history of transient ischemic attack (TIA), and cerebral infarction without residual deficits; I25.10 Atherosclerotic heart disease of native coronary artery without angina pectoris; Z95.5 Presence of coronary angioplasty implant and graft; Z91.040 Latex allergy status; Z88.1 Allergy status to other antibiotic agents; Z88.5 Allergy status to narcotic agent; Z88.8 Allergy status to other drugs, medicaments and biological substances; Z98.890 Other specified postprocedural states
CPT/HCPCS: 80048; 82962; 85014; 85018; 93005; J0330; J0690; J2370; J2405; J3010